=== PATIENT | male | born 1960 | race Caucasian/White ===

== ENCOUNTER 2019-02-13 03:39 | Outpatient (CLI) | payer BC ==
[2019-02-13 12:52] LABS: Hemoglobin 18.9 g/dL (14.0-18.0); Mean Corpuscular HGB CONC 32.6 g/dL (32.0-36.0); Mean Corpuscular Hemoglobin 31.2 pg (27.0-31.0); Mean Corpuscular Volume 95.9 fL (78.0-98.0); Mean Platelet Volume 8.8 fL (7.4-10.4); Platelet Count 172 thou/uL (130-400); RBC Distribution Width 13.1 % (11.5-14.5); Red Blood Cell (RBC) Count 6.04 mill/uL (4.70-6.10); White Blood Cell (WBC) Count 7.3 thou/uL (4.8-10.8)
[2019-02-13 13:00] LABS: INR-International Normal Ratio 0.9; PTT 29.6 SEC (22.9-36.1); Prothrombin Time 12.4 SEC (12.0-14.7)
[2019-02-13 13:12] LABS: Anion Gap 12 mmol/L (10-20); BUN (Urea Nitrogen) 16 mg/dL (8.4-25.7); Calc. Creatinine Clearance 0 mL/min (70-130); Calcium 9.8 mg/dL (7.8-10.44); Carbon Dioxide 29 mmol/L (22-29); Chloride 103 mmol/L (98-107); Estimated GFR-MDRD 54; Glucose 71 mg/dL (70-105); Potassium 4.7 mmol/L (3.5-5.1); Sodium 139 mmol/L (136-145)
--- NOTE | 2019-02-16 17:54 | EKG ---
Test Reason : Blood Pressure : / mmHG Vent. Rate : 066 BPM Atrial Rate : 066 BPM P-R Int : 138 ms QRS Dur : 096 ms QT Int : 370 ms P-R-T Axes : 063 102 033 degrees QTc Int : 387 ms Normal sinus rhythm Rightward axis Borderline ECG No previous ECGs available Confirmed by HANK SONI (2) on 02/16/2019 5:53:46 PM Referred By: PAULA Confirmed By:HANK SONI
== END 2019-02-13 03:40 | disposition home or self-care (01) ==
LOC: LABBT 03:39
PROVIDERS: ATTEND Surgery
DX: Z01.818 Encounter for other preprocedural examination (principal); M54.16 Radiculopathy, lumbar region; M48.061 Spinal stenosis, lumbar region without neurogenic claudication
CPT/HCPCS: 80048; 85027; 85610; 85730; 93005; 93010

== ENCOUNTER 2019-02-19 06:42 | Day surgery (SDC) | payer BC ==
[2019-02-13 11:17] VITALS: BMI 30.8
[2019-02-19] MEDS ORDERED: Sodium Chloride 0.9% 10 ML ONE (06:50)
[2019-02-19] MEDS ORDERED: Thrombin 5000 UNITS/5 ML VIAL ONE (06:50)
[2019-02-19] MEDS ORDERED: Bacitracin Zinc Ointment 30 gm TUBE ONE (06:50)
[2019-02-19] MEDS ORDERED: Fentanyl 100 MCG/2 ML VIAL ONE ×2 (07:13→09:53)
[2019-02-19] MEDS ORDERED: Midazolam HCl 2 mg/2 ml Vial ONE (07:20)
[2019-02-19] MEDS ORDERED: Promethazine HCl 25 MG/ML VIAL IM PRN ×2 (10:01→10:02)
[2019-02-19] MEDS ORDERED: Milk Of Magnesia 30 ML UDCUP PO PRN (10:01)
[2019-02-19] MEDS ORDERED: Bisacodyl 10 MG SUPP PR PRN (10:01)
[2019-02-19] MEDS ORDERED: Acetaminophen 325 MG TAB PO PRN (10:01)
[2019-02-19] MEDS ORDERED: Mag-Al 1200 mg/1200 mg/30 ML UDCUP PO PRN (10:01)
[2019-02-19] MEDS ORDERED: Fleet Enema 133 ML BOT PR PRN (10:01)
[2019-02-19] MEDS ORDERED: Ondansetron HCl/PF 4 MG/2 ML Vial IVP PRN (10:02)
[2019-02-19] MEDS ORDERED: Morphine Sulfate 2 MG/ML SYRINGE SLOW IVP PRN (10:02)
[2019-02-19] MEDS ORDERED: PACU-Morphine 4MG/ML VIAL SLOW IVP PRN (10:02)
[2019-02-19] MEDS ORDERED: HYDROmorphone 2 MG/ML VIAL SLOW IVP PRN (10:02)
[2019-02-19] MEDS ORDERED: Meperidine HCl/PF 25 MG/ML VIAL SLOW IVP PRN (10:02)
[2019-02-19] MEDS ORDERED: Promethazine HCl 25 MG/ML VIAL SLOW IVP PRN (10:02)
--- NOTE | 2019-02-19 10:03 | OP ---
DATE OF PROCEDURE: 02/19/2019 OPERATING ROOM: OR 11. WOUND CLASSIFICATION: Type 1 wound. RN DISEASE MANAGEMENT: Harrison Ceja PA-C PREPROCEDURE DIAGNOSIS: Left L5 and S1 radiculopathy with large left L5-S1 disk extrusion. POSTPROCEDURE DIAGNOSIS: Left L5 and S1 radiculopathy with large left L5-S1 disk extrusion. PROCEDURES PERFORMED: 1. Left L5-S1 hemilaminotomy, foraminotomy, and diskectomy. 2. Use of operative microscope for microdissection. DESCRIPTION OF PROCEDURE: After informed consent was obtained from the patient, the patient was brought to the OR. Proper patient, pause, and identification were carried out. He was placed under excellent general endotracheal anesthesia and positioned prone on the OR table. All appropriate points were padded. We identified the L5-S1 segment. A linear bernadette was made. This region was sterilely cleansed, prepared and draped. Proper patient, pause, and identification were carried out. The wound was then opened with a combination of sharp, monopolar, and blunt dissection. Left L5-S1 segment was exposed. Retractor was placed. Localization confirmed our area of interest. We then brought the microscope in and identified in the axilla of the exiting left L5 nerve root. Multiple large disk fragments were removed in their entirety with excellent decompression of the common dural tube, the left L5 and left S1 nerve roots. Copious irrigation occurred throughout as did maximizing hemostasis. The wound was then closed in anatomic layers. The patient then emerged from anesthesia. Job ID: [id number]
[2019-02-19] MEDS ORDERED: Sodium Chloride 0.9% 1,000 ML IV SCH (10:15)
[2019-02-19] MEDS ORDERED: Ketorolac Tromethamine 30 MG/ML VIAL IVP SCH (12:00)
[2019-02-19] MEDS ORDERED: Rocuronium Bromide 10 MG/ML (10ML VIAL) ONE (12:02)
[2019-02-19] MEDS ORDERED: Glycopyrrolate 0.2 MG/ML 5 ML SYRINGE ONE (12:02)
[2019-02-19] MEDS ORDERED: PHENYLEPHRINE-NS 100 MCG/ML 10 ML SYRINGE ONE (12:02)
[2019-02-19] MEDS ORDERED: PROPOFOL 200 MG/20 ML VIAL ONE (12:02)
[2019-02-19] MEDS ORDERED: Lidocaine 1% PF 5 ML VIAL ONE (12:02)
[2019-02-19] MEDS ORDERED: Ondansetron PF 4 MG/2 ML Vial ONE (12:02)
[2019-02-19] MEDS ORDERED: ePHEDrine 50 MG/ML VIAL ONE (12:02)
[2019-02-19] MEDS ORDERED: Dexamethasone 20 MG/5 ML VIAL ONE (12:02)
[2019-02-19 12:10] VITALS: BP 124/78; TEMP 97.7
[2019-02-19] MEDS ORDERED: CEFAZOLIN 2 GM in Premix Bag 1 BAG IVPB SCH (15:00)
[2019-02-19] MEDS ORDERED: clonazePAM 1 MG TAB PO SCH (21:00)
[2019-02-20] MEDS ORDERED: Levothyroxine Sodium 25 MCG TAB PO SCH (06:00)
[2019-02-20] MEDS ORDERED: Aripiprazole 2 MG TAB PO SCH (09:00)
[2019-02-20] MEDS ORDERED: Venlafaxine HCl XR 150 MG CAP PO SCH (09:00)
== END 2019-02-19 16:40 | disposition home or self-care (01) ==
LOC: SDC 06:42 → SJJU 11:25 → SDC 16:40
PROVIDERS: ATTEND Surgery
PROC: 0SB20ZZ Excision of Lumbar Vertebral Disc, Open Approach (ICD-10-PCS; principal; 2019-02-19)
DX: M51.17 Intervertebral disc disorders with radiculopathy, lumbosacral region (principal); Z79.82 Long term (current) use of aspirin; Z79.899 Other long term (current) drug therapy
CPT/HCPCS: 76000; J0131; J1100; J1885; J2001; J2250; J2405; J2704; J3010; J3370; J3490